=== PATIENT | male | born 1955 | race African-American/Black ===

== ENCOUNTER 2023-09-16 12:54 | Emergency (ER) | payer OTHER ==
[2023-09-16 14:24] LABS: ALT (SGPT) 562 U/L (8-55); AST (SGOT) 283 U/L (5-34); Albumin 3.4 g/dL (3.4-4.8); Alkaline Phosphatase 159 U/L (40-110); Anion Gap 18 mmol/L (10-20); BUN (Urea Nitrogen) 100 mg/dL (8.4-25.7); Bilirubin, Total 0.7 mg/dL (0.2-1.2); Calc. Creatinine Clearance 0 mL/min (70-130); Calcium 9.4 mg/dL (7.8-10.44); Carbon Dioxide 18 mmol/L (23-31); Chloride 85 mmol/L (98-107); Estimated GFR 17; Globulin 5.3 g/dL (2.4-3.5); Glucose 121 mg/dL (80-115); Lipase 187 U/L (8-78); Protein, Total 8.7 g/dL (5.8-8.1)
[2023-09-16 14:25] LABS: #Eosinphils 0.2 10x3/uL (0.0-0.5); #Monocytes 0.8 10x3/uL (0.0-1.1); #Neutrophils 7.3 10x3/uL (1.5-8.4); %Basophils 0.2 % (0.0-2.0); %Eosinophils 2.2 % (0.0-6.0); %Lymphocytes 10.3 % (18.0-47.0); %Monocytes 7.8 % (0.0-10.0); %Neutrophils 76.6 % (40.0-75.0); Hematocrit 30.9 % (38.8-50.0); Hemoglobin 10.5 g/dL (13.5-17.5); Mean Corpuscular Hemoglobin 28.5 pg (27.0-33.0); Platelet Count 816 10x3/uL (150-450); RBC Distribution Width 13.4 % (11.5-14.5); Red Blood Cell (RBC) Count 3.68 10x6/uL (4.32-5.72); White Blood Cell (WBC) Count 9.6 10x3/uL (3.5-10.5)
[2023-09-16 14:28] LABS: Potassium 6.1 mmol/L (3.5-5.1); Sodium 115 mmol/L (136-145)
[2023-09-16 15:03] LABS: Bilirubin Neg (Negative); Blood, Urine Negative (Negative); Clarity Clear (Clear); Glucose, Urine (Dipstick) Normal (Negative); Ketone, Urine Negative (Negative); Leukocyte Negative (Negative); Nitrite Negative (Negative); Protein, Urine (Dipstick) 30 mg/dl (Neg-Trace); Specific Gravity, Urine 1.015 (1.005-1.030); Urobilinogen Normal mg/dL (Less than 2)
[2023-09-16 15:39] LABS: Bacteria/HPF None Seen HPF (None Seen); CAUTI Indications for Culture Dysuria,urgency,freq; RBC/HPF None Seen HPF (0-3); Squamous Epithelial None Seen HPF (0-3); Urine Culture Reflex No No; WBC/HPF 0-3 HPF (0-3)
[2023-09-16] MEDS ORDERED: Calcium Chloride 1 GM/10 ML Abboject SYRINGE ONE (16:11)
[2023-09-16] MEDS ORDERED: LOKELMA 10 GM PACKET PO SCH (16:30)
[2023-09-16 19:49] LABS: Anion Gap 19 mmol/L (10-20); BUN (Urea Nitrogen) 92 mg/dL (8.4-25.7); Calc. Creatinine Clearance 0 mL/min (70-130); Calcium 9.8 mg/dL (7.8-10.44); Carbon Dioxide 15 mmol/L (23-31); Chloride 93 mmol/L (98-107); Estimated GFR 21; Glucose 93 mg/dL (80-115); Sodium 121 mmol/L (136-145)
[2023-09-16 20:26] LABS: Potassium 6.1 mmol/L (3.5-5.1)
[2023-09-16] MEDS ORDERED: Dextrose 50% Abboject 50 ML SYRINGE ONE (20:32)
[2023-09-16] MEDS ORDERED: Sodium Bicarb 50 MEQ/50 ML Abboject 8.4% SYRINGE ONE (20:36)
[2023-09-16] MEDS ORDERED: Insulin Regular 300 UNITS/3 ML VIAL ONE (20:37)
== END 2023-09-16 22:01 | disposition short-term general hospital (02) ==
LOC: CSHERS 12:54
DX: N17.9 Acute kidney failure, unspecified (principal); E87.5 Hyperkalemia; E87.1 Hypo-osmolality and hyponatremia; I25.10 Atherosclerotic heart disease of native coronary artery without angina pectoris; Z79.82 Long term (current) use of aspirin
CPT/HCPCS: 36415; 36416; 74176; 80053; 81001; 83690; 85025; 93005; 96374; 96375; J1815; J7999